=== PATIENT | female | born 1960 | race Caucasian/White ===

== ENCOUNTER 2022-11-05 19:27 | Emergency (ER) | payer OTHER ==
[2022-11-05] MEDS ORDERED: TETANUS/DIPHTHERIA/PERTUSSIS 0.5 ML SYRINGE IM ONE (19:47)
[2022-11-05 19:56] VITALS: BP 164/91
== END 2022-11-05 20:10 | disposition left against medical advice (07) ==
LOC: ED 19:27
DX: Z53.21 Procedure and treatment not carried out due to patient leaving prior to being seen by health care provider (principal)